=== PATIENT | female | born 1965 | race Caucasian/White ===

== ENCOUNTER 2021-04-24 19:54 | Inpatient (IN) ==
[2021-04-24] MEDS ORDERED: morphine 4 MG/ML VIAL IV ONE (20:13)
[2021-04-24] MEDS ORDERED: NON FORMULARY MEDICATION 1 DOSE MISCELL (Oxycodone 10 mg tablet) PO PRN (20:53)
[2021-04-24] MEDS ORDERED: CYCLOBENZAPRINE (PP) 10 MG TABLET PO PRN (20:53)
[2021-04-24] MEDS ORDERED: DIAZEPAM 10 MG PO SCH (21:00)
--- NOTE | 2021-04-24 21:02 | Internal Med History&Physical ---
HPI History of Present Illness Patient information: Note initiated : 04/24/21 at 8:58 pm Service Date, if different from initiated Date: [] Patient: Maye Duncan a 55 y/o F admitted on for Broken Hip. Chief Complaint: [left hip fracture] History of present illness: Ms. Duncan is a 55 year old F history of seizure and chronic pancreatitis, presenting with seizure with resultant fall and left hip fracture. Last seizure episode was 2 weeks ago, as described as tonic-clonic seizure activities all 4 extremities without LOC. She has been taking Gabapentin 100mg PO TID, last dose was yesterday. Earlier today when she was walking from bedroom to bathroom, she had another episode of tonic clonic seizure activities all 4 extremities, without LOC. She remembers the whole process. No tongue biting. Positive for urinary incontinence. Denies headache. Denies confusion or post-ictal confusion. She is not sure about the duration of the seizure. It was witnessed by her . She fell as a result with resultant left femoral head closed nondisplaced fracture. Currently c/o 6/10 sharp constant pain of left proximal thigh, with radiation up to her left hip and down to her left knee. No witnessed seizure activities since ED presentation. Constitutional Constitutional: Absent chills, excessive sweating, fatigue, fever(s) and weakness EENT Eyes: Absent blurry vision, change in vision, loss of vision and other visual disturbances Ears: Absent decreased hearing and tinnitus Nose, mouth and throat: Absent abnormal hearing, dry mouth, headache(s), nasal congestion and sore throat Cardiovascular Cardiovascular: Absent chest pain, chest pain at rest, edema, irregular heart rhythm and palpatations Respiratory Respiratory: Absent cough, dyspnea and wheezing Gastrointestinal Gastrointestinal: Absent abdominal pain, constipation, diarrhea, nausea and vomiting Musculoskeletal Musculoskeletal: Absent back pain, deformity, limited range of motion, muscle cramps, muscle weakness and numbness Additional comments: left thigh pain Integumentary Integumentary: Absent lesions, rash and wounds Neurological Neurological: Absent focal weakness, headache(s) and numbness Psychiatric Psychiatric: Absent anxiety, depression and hallucinations PFSH PFSH All Active Problems (Updated 04/24/21 @ 21:32 by Srinivasa Hickman MD) Seizure (Acute) Fracture of head of left femur (Acute) Fracture of hip (Acute) MEDS/ALLERGIES Home Medications and Allergies Home Medications Medication Instructions Recorded Confirmed Type buspirone 10 mg PO BID 04/24/21 04/24/21 History cyclobenzaprine 10 mg PO TID PRN 04/24/21 04/24/21 History diazepam 10 mg PO TID PRN 04/24/21 04/24/21 History fentanyl 12 mcg TRANSDERMAL Q72 04/24/21 04/24/21 History food supplemt, lactose-reduced 1 ea PO QDAY 04/24/21 04/24/21 History [Ensure] hydroxyzine HCl 25 mg PO QID PRN 04/24/21 04/24/21 History [id number] [Creon] 2 - 4 cap PO TID 04/24/21 04/24/21 History metoclopramide HCl [Reglan] 10 mg PO BID 04/24/21 04/24/21 History ondansetron 8 mg PO Q8H PRN 04/24/21 04/24/21 History oxycodone-acetaminophen 1 tab PO TID PRN 04/24/21 04/24/21 History pantoprazole 40 mg PO QDAY 04/24/21 04/24/21 History potassium chloride 10 meq PO BID 04/24/21 04/24/21 History trazodone 100 mg PO HS 04/24/21 04/24/21 History vitamin E 400 unit PO QDAY 04/24/21 04/24/21 History Allergies Allergy/AdvReac Type Severity Reaction Status Date / Time citalopram [From Celexa] Allergy Verified 04/24/21 19:59 ketorolac [From Toradol] Allergy Verified 04/24/21 19:59 EXAM Constitutional Vitals: Temp Pulse Resp BP Pulse Ox 36.3 C 77 16 129/75 96 04/24/21 19:55 04/24/21 20:46 04/24/21 19:55 04/24/21 20:46 04/24/21 20:46 General appearance: cooperative and no acute distress Head Head exam: Present atraumatic and normocephalic Eye Eye exam: Present EOMI and PERRL ENT ENT exam: Present mucous membranes moist, normal exam and normal external ear exam Neck Neck exam: Present normal inspection; Absent lymphadenopathy, tenderness and thyromegaly Respiratory Respiratory exam: Absent accessory muscle use, respiratory distress and wheezes Cardiovascular Cardiovascular exam: Present normal rate and rhythm; Absent JVD GI/Abdominal GI/Abdominal exam: Present normal bowel sounds and soft; Absent organomegaly and tenderness Extremities Exam Extremities exam: Present normal capillary refill, normal inspection and tenderness; Absent full ROM Neurological Exam Neurological exam: Present alert, CN II-XII intact and oriented X3; Absent motor sensory deficit Psychiatric Psychiatric exam: Present normal affect and normal mood; Absent anxious and depressed Skin Skin exam: Present dry and intact A/P Assessment and plan (1) Fracture of head of left femur: Status: Acute (2) Seizure: Status: Acute Narrative A/P Narrative: Assessment and Plans: 1. Left femoral head closed nondisplaced fracture: Admit to inpatient PCU Orthopedic surgeon consulted for potential ORIF NPO with NS@100cc/hr for planned surgery Bedrest Oxycodone PRN moderate pain Dilaudid IV PRN severe pain Physical therapy Occupational therapy 2. Seizure: Neuro chek q2hr Seizure precaution Keppra 1000mg PO BID, consult pharmacy for dose titration Ativan IV PRN seizure activities Prolactin level Need outpatient neurology follow up appointment for optimization of anti- epileptic therapy GI ppx: not currently indicated DVT ppx: SCDs Code status: Full Prognosis: Guarded Disposition: inpatient PCU telemetry; PT OT Time Spent With Patient Time: Total time spent is greater than 50% in coordination of care (as documented) at patient's floor/unit and/or counseling patient: Total time spent with greater than 50% in coordination of care (as documented) at patient's floor/unit and/or counseling patient:: Greater than 35 minutes
[2021-04-24] MEDS ORDERED: levETIRAcetam 500 MG TABLET PO ONE (21:08)
[2021-04-24] MEDS ORDERED: levETIRAcetam 1,000 MG in 0.9 % SODIUM CHLORIDE 100 ML IV ONE (21:12)
--- NOTE | 2021-04-24 21:20 | Emergency Department Note ---
HPI General Chief complaint: Extremity Injury, Lower Stated complaint: Broken Hip Time Seen by Provider: 04/24/21 20:13 Source: EMS Mode of arrival: EMS Limitations: no limitations History of Present Illness HPI Narrative: Narrative: Patient is a 55-year-old female who presented with chief complaint of hip fracture. Patient is a transfer from an outside hospital as orthopedic surgery has accepted the patient to be transferred and will be taken to the OR either this evening or tomorrow morning. Patient in brief states that she has a long history of seizures, though she is not on any antiepileptic medications just gabapentin for it. She only has them intermittently and she had one episode today where it caused her to fall onto her left hip. She denies hitting her head or loss of consciousness otherwise, and the work-up at the outside hospital was benign outside of a hip fracture of the left hip. She currently states that she still has some pain but otherwise denies any other significant symptoms such as headache, neck pain, numbness or tingling, chest pain, shortness breath, nausea, vomiting, abdominal pain, changes in bowel movements or urinary symptoms. Related Data Home Medications Medication Instructions Recorded Confirmed cyclobenzaprine 10 mg PO TID PRN 04/24/21 04/24/21 diazepam 10 mg PO TID PRN 04/24/21 04/24/21 fentanyl 12 mcg TRANSDERMAL Q72 04/24/21 04/24/21 [id number] [Creon] 2 - 4 cap PO TID 04/24/21 04/24/21 oxycodone-acetaminophen 1 tab PO TID PRN 04/24/21 04/24/21 Allergies Allergy/AdvReac Type Severity Reaction Status Date / Time citalopram [From Celexa] Allergy Verified 04/24/21 19:59 ketorolac [From Toradol] Allergy Verified 04/24/21 19:59 Review of Systems ROS ROS Narrative: Narrative: All systems ED: reviewed and negative except as stated. [facility] Narr[facility] Patient History Narrative: Narrative: Medical/Surgical/Family History All Active Problems (Updated 04/24/21 @ 21:20 by Ty Anand DO) Fracture of hip (Acute) Social History Smoking Status: Former smoker Exam Narrative Narrative: Narrative: General Limitations: no limitations General appearance: Present alert Head Head: Present atraumatic and normocephalic Eye Eye: Present normal appearance and EOMI Neck Neck: Present full ROM; Absent meningismus Chest Chest: Present symmetric chest wall rise Respiratory Respiratory: Absent respiratory distress, stridor and accessory muscle use Cardiovascular Cardiovascular: Present regular rate and normal rhythm Extremities Extremities: Present normal inspection, full ROM and normal capillary refill; Absent tenderness Expanded Lower Extremity Hip/Pelvis: Present tenderness (Left hip tenderness to palpation) and pelvis stable Neurovascular/Tendon: Present normal capillary refill; Absent pulse deficit, motor deficit and sensory deficit Neurological Neurological: Present alert and oriented X3; Absent motor sensory deficit Psychiatric Psychiatric: Present normal affect and normal mood Skin Skin: Present warm (WNL), dry and normal color; Absent rash Course Vital Signs Vital signs: Vital Signs Temperature 97.4 F 04/24/21 19:55 Pulse Rate 73 04/24/21 19:55 Respiratory Rate 16 04/24/21 19:55 Blood Pressure 136/67 04/24/21 19:55 Pulse Oximetry (%) 96 04/24/21 19:55 Temperature 97.4 F 04/24/21 19:55 Pulse Rate 73 04/24/21 21:01 Respiratory Rate 16 04/24/21 19:55 Blood Pressure 119/66 04/24/21 21:01 Pulse Oximetry (%) 93 04/24/21 21:01 [facility] MDM Narrative Medical decision making narrative: Narrative: Patient is a 55-year-old female presented with chief complaint of hip fracture. At this time patient has no other significant findings on her physical exam, she appears to be neurologically intact, and plan will be to admit her for further work-up and management. Hospitalist is aware, and orthopedics has been notified the patient is arrived. 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
[2021-04-24] MEDS ORDERED: MAGNESIUM SULFATE 2 GM/50 ML BAG IV ONE (22:10)
[2021-04-24] MEDS ORDERED: LIDOCAINE HCL/PF 100 MG/5 ML SYRINGE IV ONE (22:10)
[2021-04-24] MEDS ORDERED: DEXAMETHASONE 10 MG/ML VIAL ONE (22:10)
[2021-04-24] MEDS ORDERED: ONDANSETRON 4 MG/2 ML VIAL ONE (22:10)
[2021-04-24] MEDS ORDERED: PROPOFOL 200 MG/20 ML VIAL IV ONE (22:10)
[2021-04-24] MEDS ORDERED: fentaNYL 100 MCG/2 ML VIAL IV ONE ×2 (22:10→23:08)
[2021-04-24] MEDS ORDERED: NALOXONE HCL 0.4 MG/ML VIAL IV PRN (22:24)
[2021-04-24] MEDS ORDERED: IPRATROPIUM/ALBUTEROL 3 ML AMPUL.NEB NEB PRN ×2 (22:24→23:48)
[2021-04-24] MEDS ORDERED: ACETAMINOPHEN 1,000 MG/100 ML BAG IV ONE (22:24)
[2021-04-24] MEDS ORDERED: LACTATED RINGERS 250 ML IV PRN (22:24)
[2021-04-24] MEDS ORDERED: PROMETHAZINE 25 MG/ML VIAL IV PRN (22:24)
[2021-04-24] MEDS ORDERED: BENZOCAINE/MENTHOL 1 LOZENGE PO PRN (22:24)
[2021-04-24] MEDS ORDERED: diphenhydrAMINE 50 MG/ML VIAL IV PRN (22:24)
[2021-04-24] MEDS ORDERED: ONDANSETRON 4 MG/2 ML VIAL IV PRN ×2 (22:24→23:48)
[2021-04-24] MEDS: ceFAZolin 1 GM VIAL IV SCH ×2 (22:26→22:58)
[2021-04-24] MEDS ORDERED: LACTATED RINGERS 1,000 ML IV SCH (22:30)
[2021-04-24] MEDS ORDERED: BUPIVACAINE W/EPI 0.5% 50 ML VIAL IJ ONE (22:45)
[2021-04-24] MEDS ORDERED: POLYETHYLENE GLYCOL 3350 17 GM PACKET PO PRN (22:52)
[2021-04-24] MEDS ORDERED: MAGNESIUM HYDROXIDE 30 ML ORAL.SUSP PO PRN (22:52)
[2021-04-24] MEDS ORDERED: FLEETS ADULT ENEMA PR PRN (22:52)
[2021-04-24] MEDS ORDERED: HYDROCODONE/APAP 7.5/325MG TABLET PO PRN (22:52)
[2021-04-24] MEDS ORDERED: BISACODYL 10 MG SUPP.RECT PR PRN (22:52)
--- NOTE | 2021-04-24 22:52 | Brief Operative Note ---
Brief Operative Note Date of procedure: 04/24/21 Pre-op diagnosis: Left valgus impacted femoral neck fracture Post-op diagnosis: same Procedure: Percutaneous screw fixation of left femoral neck fracture Grafts/Implants: Yes (Gary 6.5 cannulated screws x 3) Anesthesia: GLMA Findings: nondisplaced valgus impacted femoral neck fracture Complications: none Surgeon: Hosea Jaeger Estimated blood loss (cc): 30 Specimens Removed/Pathology: none sent Condition: stable Disposition: PACU
[2021-04-24] MEDS ORDERED: ceFAZolin 2 GM in DEXTROSE 5% IN WATER 50 ML IV SCH (23:00)
[2021-04-24] MEDS: fentaNYL 100 MCG/2 ML VIAL IV PRN ×4 (23:05→23:19)
[2021-04-24] MEDS: MEPERIDINE 25 MG/ML VIAL IV PRN ×2 (23:11→23:16)
[2021-04-24] MEDS ORDERED: MEPERIDINE 50 MG/ML VIAL ONE (23:14)
[2021-04-24] MEDS: morphine 2 MG/ML VIAL IV PRN ×2 (23:19→23:30)
[2021-04-24] MEDS ORDERED: morphine 2 MG/ML VIAL ONE ×2 (23:21→23:34)
[2021-04-24] MEDS ORDERED: SENNOSIDES 1 TABLET PO PRN (23:48)
[2021-04-24] MEDS ORDERED: ACETAMINOPHEN 325 MG TABLET PO PRN (23:48)
[2021-04-24] MEDS ORDERED: NON FORMULARY MEDICATION 1 DOSE MISCELL (Oxycodone 10 MG) PO PRN (23:48)
[2021-04-24] MEDS ORDERED: 0.9 % SODIUM CHLORIDE 1,000 ML IV SCH (23:48)
[2021-04-24] MEDS ORDERED: LACTULOSE 20 GM/30 ML ORAL.SOL PO PRN (23:48)
[2021-04-24] MEDS ORDERED: HYDROmorphone 0.5 MG/0.5 ML SYRINGE IV PRN (23:48)
[2021-04-24] MEDS ORDERED: LORazepam 2 MG/ML VIAL IV PRN (23:48)
[2021-04-24] MEDS: DOCUSATE SODIUM 100 MG CAPSULE PO SCH (23:50)
[2021-04-25] MEDS: 0.9 % SODIUM CHLORIDE 1,000 ML IV SCH ×2 (00:22→11:52)
[2021-04-25] MEDS: 0.9 % SODIUM CHLORIDE 10 ML SYRINGE IV SCH ×2 (00:29→05:52)
[2021-04-25] MEDS: levETIRAcetam 500 MG TABLET PO SCH ×2 (00:29→09:01)
[2021-04-25] MEDS ORDERED: DIAZEPAM 5 MG TABLET ONE (00:41)
[2021-04-25 01:11] LABS: Prolactin 31.7 ng/mL (4.8-23.3)
[2021-04-25] MEDS: morphine 4 MG/ML VIAL IV PRN ×2 (02:30→06:50)
[2021-04-25] MEDS ORDERED: morphine 4 MG/ML VIAL ONE (02:32)
--- NOTE | 2021-04-25 05:51 | XRay Report ---
INDICATION: left hip pinning TECHNIQUE: Intraoperative fluoroscopy and spot films utilized. 2.6 minutes fluoroscopy and 3.97 mGy exposure used. Left subcapital hip fracture was. Subcapital hip transfixion with cannulated screws performed. IMPRESSION: Intraoperative fluoroscopy and spot films Interpreted and Authenticated by: Deepak Duncan 04/25/21
[2021-04-25] MEDS ORDERED: CYCLOBENZAPRINE 10 MG TABLET PO PRN (06:06)
[2021-04-25 06:54] LABS: Basophils # (Auto) 0.02 K/mcL (0.00-0.30); Basophils % (Auto) 0.2 % (0.0-2.0); Eosinophils # (Auto) 0 K/mcL (0.00-0.70); Eosinophils % (Auto) 0 % (0.0-7.0); Hematocrit 32.8 % (34.1-44.9); Lymphocytes # (Auto) 0.53 K/mcL (1.50-4.80); Lymphocytes % (Auto) 5.4 % (15.5-49.0); Mean Cell Volume 95.6 fL (80.0-100.0); Mean Corpuscular HGB Conc 33.5 g/dL (31.0-36.0); Mean Platelet Volume 10.8 fL (7.4-10.4); Monocytes # (Auto) 0.11 K/mcL (0.10-0.90); Monocytes % (Auto) 1.1 % (1.0-12.0); Neutrophils % (Auto) 93.3 % (38.0-78.0); Platelet Count 227 K/mcL (140-440); RBC 3.43 M/mcL (3.59-5.38); Red Cell Distribution Width 13.2 % (11.5-14.5); WBC 9.7 K/mcL (4.5-11.0)
[2021-04-25] MEDS ORDERED: ceFAZolin 1 GM VIAL IV SCH (07:00)
[2021-04-25 07:17] LABS: ALT/SGPT 19 U/L (<40); AST/SGOT 26 U/L (<32); Albumin 3.9 gm/dL (3.2-5.2); Albumin/Globulin Ratio 1.6 (1.0-2.3); Alkaline Phosphatase 80 U/L (39-117); Bilirubin,Total 0.3 mg/dL (0.1-1.0); Blood Urea Nitrogen 8 mg/dL (6-20); Calcium 8.1 mg/dL (8.6-10.4); Carbon Dioxide 22 mmol/L (22-30); Chloride 107 mmol/L (96-108); Globulin 2.5 gm/dL (2.2-3.7); Glomerular Filtration Rate 108; Glucose 142 mg/dL (70-105)
--- NOTE | 2021-04-25 07:43 | EKG ---
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
[2021-04-25] MEDS: DOCUSATE SODIUM 100 MG CAPSULE PO SCH (08:32)
[2021-04-25] MEDS ORDERED: DIAZEPAM 10 MG TABLET PO SCH (09:00)
[2021-04-25] MEDS ORDERED: ASPIRIN 325 MG ENTERIC COATED TABLET PO SCH (09:00)
[2021-04-25] MEDS ORDERED: DOCUSATE SODIUM 100 MG CAPSULE PO SCH (09:00)
--- NOTE | 2021-04-25 09:35 | Orthopedic Progress Note ---
SUBJECTIVE Subjective Patient information: Note initiated : 04/25/21 at 9:31 am Service Date, if different from initiated Date: [] Patient: Maye Duncan 55 y/o F admitted on 04/24/21 for Broken Hip. Chief Complaint: [] Principal diagnosis: femoral neck fracture Interval history: pain well controlled Constitutional Vitals: Vital Signs Temp Pulse Resp BP Pulse Ox 98.3 F 79 20 130/84 95 04/25/21 08:10 04/25/21 08:10 04/25/21 08:10 04/25/21 08:10 04/25/21 08:10 Period Temp Pulse Resp BP Sys/Lainez Pulse Ox Last 24 Hr 97.1 F-98.9 F 60-117 10-20 101-144/49-98 92-100 Intake and Output 04/24/21 04/25/21 04/25/21 21:59 05:59 13:59 Intake Total 1257 659 Output Total 1550 Balance -293 659 Weight 105 lb 108 lb 1.6 oz Intake & Output: Intake & Output 04/24/21 04/25/21 04/25/21 21:59 05:59 13:59 Intake Total 1257 659 Output Total 1550 Balance -293 659 Weight 105 lb 108 lb 1.6 oz Intake: IV 137 659 Sodium Chloride 0.9% 1,000 ml @ 659 75 mls/hr IV .[id number] [facility] Rx#: [id number] Lactated Ringers 1,000 ml @ 20 37 mls/hr IV .Q24H [facility]IRG[facility] Rx#: [id number] Oral 120 IV - Manual Only 1000 Output: Urine Catheter Amount 1500 Estimated Blood Loss 50 Other: Urine Appearance Clear Uretheral (Oden) Clear Clear Clear Urine Color Bright Yellow Uretheral (Oden) Dark Yellow Pale Bright Yellow Urine Odor Normal General appearance: no acute distress OBJ DATA Labs CBC & Chem 7: 04/25/21 05:53 04/25/21 05:53 Labs: Abnormal Lab Results 04/25/21 04/25/21 04/24/21 05:53 05:53 00:16 RBC 3.43 L Hgb 11.0 L Hct 32.8 L MPV 10.8 H Neut % (Auto) 93.3 H Lymph % (Auto) 5.4 L Lymph # (Auto) 0.53 L Absolute Neutrophils 9.07 H Creatinine 0.5 L Glucose 142 H Calcium 8.1 L Prolactin 31.7 H Meds: Medications Acetaminophen (Acetaminophen 325 Mg Tablet) 650 mg PO Q6HP PRN; Protocol PRN Reason: Per Pain Protocol/Fever > 101 Hydrocodone Bitart/Acetaminophen (Hydrocodone/Apap 7.5/325mg Tablet) 0 tab PO Q4HP PRN; Protocol PRN Reason: Per Pain Protocol Albuterol/Ipratropium (Ipratropium/Albuterol 3 Ml Ampul.Neb) 3 ml NEB Q4HRT PRN PRN Reason: Wheezing Aspirin (Aspirin 325 Mg Enteric Coated Tablet) 325 mg PO BID [facility] Last Admin: 04/25/21 09:01 Dose: 325 mg Documented by: Bisacodyl (Bisacodyl 10 Mg Supp.Rect) 10 mg IA Q2-3DAYS PRN PRN Reason: Constipation Cefazolin Sodium (Cefazolin 1 Gm Vial) 2 gm IV Q8H [facility] Stop: 04/25/21 15:01 Last Admin: 04/25/21 06:50 Dose: 2 gm Documented by: Cyclobenzaprine HCl (Cyclobenzaprine 10 Mg Tablet) 10 mg PO TIDP PRN PRN Reason: Spasms Diazepam (Diazepam 10 Mg Tablet) 10 mg PO BID [facility] Last Admin: 04/25/21 09:01 Dose: 10 mg Documented by: Docusate Sodium (Docusate Sodium 100 Mg Capsule) 100 mg PO BID [facility] Last Admin: 04/25/21 08:32 Dose: Not Given Documented by: Hydromorphone HCl (Hydromorphone 0.5 Mg/0.5 Ml Syringe) 0.5 mg IV Q4HP PRN; Protocol PRN Reason: Per Pain Protocol Sodium Chloride (Sodium Chloride 0.9%) 1,000 mls @ 75 mls/hr IV .[id number] [facility] Last Infusion: 04/25/21 09:10 Dose: Infused Documented by: Lactulose (Lactulose 20 Gm/30 Ml Oral.Leisa) 10 gm PO DAILYP PRN PRN Reason: Constipation Levetiracetam (Levetiracetam 500 Mg Tablet) 1,000 mg PO BID [facility] Last Admin: 04/25/21 09:01 Dose: 1,000 mg Documented by: Lorazepam (Lorazepam 2 Mg/Ml Vial) 2 mg IV Q1HP PRN PRN Reason: Seizure Activity Magnesium Hydroxide (Magnesium Hydroxide 30 Ml Oral.Susp) 30 ml PO BIDP PRN PRN Reason: Constipation Morphine Sulfate (Morphine 4 Mg/Ml Vial) 0 mg IV Q1HP PRN; Protocol PRN Reason: Per Pain Protocol Last Admin: 04/25/21 06:50 Dose: 4 mg Documented by: Non-Formulary Medication (Oxycodone) 10 mg PO Q4H PRN PRN Reason: Pain Ondansetron HCl (Ondansetron 4 Mg/2 Ml Vial) 4 mg IV Q4HP PRN; Protocol PRN Reason: Nausea And Vomiting Polyethylene Glycol (Polyethylene Glycol 3350 17 Gm Packet) 17 gm PO DAILYP PRN PRN Reason: Constipation Senna (Sennosides 1 Tablet) 2 tab PO HSP PRN PRN Reason: Constipation Sodium Biphosphate/Sodium Phosphate (Fleets Adult Enema) 1 dose IA Q3-4DAYS PRN PRN Reason: Constipation Sodium Chloride (0.9 % Sodium Chloride 10 Ml Syringe) 10 ml IV Q8 [facility] Last Admin: 04/25/21 05:52 Dose: Not Given Documented by: A/P Assessment and plan (1) Fracture of head of left femur: Status: Acute Narrative A/P Narrative: POD#1 s/p Left hip perc pinning for femoral neck fracture-ortho stable -d/c home today if ok w hospitalist -toe touch weight bearing LLE, place silver dressing on and leave 7 days -could see PCP for joyce out 10-14 days and xray check, f/u w me in 6 weeks -outpt PT Time Spent With Patient Time: Total time spent is greater than 50% in coordination of care (as documented) at patient's floor/unit and/or counseling patient:
--- NOTE | 2021-04-25 09:38 | Discharge Summary ---
Discharge Provider Provider Patient information: Note initiated : 04/25/21 at 9:34 am Service Date, if different from initiated Date: [] Patient: Maye Duncan 55 y/o F admitted on 04/24/21 for Broken Hip. Chief Complaint: [] Date of admission: 04/24/21 23:43 Discharge date: 04/25/21 Primary care physician: Wayne Ramirez MD Attending physician on admission: Srinivasa Hickman Consults: 04/24/21 Consult to Physician [CONS] Stat Comment: Consulting Provider: Hosea Jaeger Reason For Exam: Physician to Consult Consult to Physician [CONS] Stat Comment: Consulting Provider: Srinivasa Hickman Reason For Exam: Physician to Consult Attending physician on discharge: Srinivasa Hickman Discharge Meds Discharge Medications Home Medications buspirone 10 mg tablet 10 mg PO BID 04/24/21 [History Confirmed 04/24/21 Last Taken Unknown] cyclobenzaprine 10 mg tablet 10 mg PO TID PRN 04/24/21 [History Confirmed 04/24/21 Last Taken Unknown] diazepam 10 mg tablet 10 mg PO TID PRN 04/24/21 [History Confirmed 04/24/21 Last Taken Unknown] fentanyl 12 mcg/hr transdermal patch 12 mcg TRANSDERMAL Q72 04/24/21 [History Confirmed 04/24/21 Last Taken 04/22/21] food supplemt, lactose-reduced (Ensure) 1 ea PO QDAY 04/24/21 [History Confirmed 04/24/21 Last Taken Unknown] hydroxyzine HCl 25 mg tablet 25 mg PO QID PRN 04/24/21 [History Confirmed 04/24/21 Last Taken Unknown] bcwqxy-[id number]-nlmhwyj 24,000-76,000-120,000 unit capsule,delayed rel (Creon) 2 - 4 cap PO TID 04/24/21 [History Confirmed 04/24/21 Last Taken Unknown] metoclopramide HCl 10 mg tablet (Reglan) 10 mg PO BID 04/24/21 [History Confirmed 04/24/21 Last Taken Unknown] ondansetron 8 mg disintegrating tablet 8 mg PO Q8H PRN 04/24/21 [History Confirmed 04/24/21 Last Taken Unknown] oxycodone-acetaminophen 5 mg-325 mg tablet 1 tab PO TID PRN 04/24/21 [History Confirmed 04/24/21 Last Taken Unknown] pantoprazole 40 mg tablet,delayed release 40 mg PO QDAY 04/24/21 [History Confirmed 04/24/21 Last Taken Unknown] potassium chloride 10 mEq capsule,extended release 10 meq PO BID 04/24/21 [History Confirmed 04/24/21 Last Taken Unknown] trazodone 100 mg tablet 100 mg PO HS 04/24/21 [History Confirmed 04/24/21 Last Taken Unknown] vitamin E 400 unit capsule 400 unit PO QDAY 04/24/21 [History Confirmed 04/24/21 Last Taken Unknown] aspirin 325 mg tablet,delayed release 325 mg PO BID 60 Days #120 tab 04/25/21 [Rx Last Taken Unknown] hydrocodone 7.5 mg-acetaminophen 325 mg tablet 1 - 2 tab PO Q4H PRN #50 tab 04/25/21 [Rx Last Taken Unknown] levetiracetam 500 mg tablet 1,000 mg PO BID 30 Days #120 tab 04/25/21 [Rx Last Taken Unknown] COURSE Hospital Course Hospital course: She was admitted on April 24, 2021 for left femoral neck hip fractures secondary to fall secondary to seizures. Patient was started on Keppra orally for seizure prophylaxis and Ativan provided for any seizure activities. There was no more additional seizure activities during her hospital state. Orthopedic surgeons was consulted who performed percutaneous screw fixation of the left femoral neck fracture. Patient tolerated the procedures well. Physical therapist evaluated the patient and agreed that patient could be discharged home when medically stable. Patient reached such medical stability on day 2 hospitalization and decision was made to discharge patient home with 2 weeks PCP follow-up in 6 weeks orthopedic surgery follow-up. Prescriptions given to the patient. All questions were answered prior to patient being physically discharged. Discharge diagnosis: left femoral neck hip fracture Reason for admission: left femoral neck hip fracture Time Spent with Patient Time attestation: Total time spent providing and/or coordinating discharge services: EXAM Constitutional Vitals: Temp Pulse Resp BP Pulse Ox 36.8 C 79 20 130/84 95 04/25/21 08:10 04/25/21 08:10 04/25/21 08:10 04/25/21 08:10 04/25/21 08:10 General appearance: cooperative and no acute distress Head Head exam: Present atraumatic and normocephalic Eye Eye exam: Present EOMI and PERRL ENT ENT exam: Present mucous membranes moist, normal exam and normal external ear exam Neck Neck exam: Present normal inspection; Absent lymphadenopathy, tenderness or thyromegaly Respiratory Respiratory exam: Absent accessory muscle use, respiratory distress or wheezes Cardiovascular Cardiovascular exam: Present normal rate and rhythm; Absent JVD GI/Abdominal GI/Abdominal exam: Present normal bowel sounds and soft; Absent organomegaly or tenderness Extremities Exam Extremities exam: Present full ROM, normal capillary refill and tenderness; Absent normal inspection Neurological Exam Neurological exam: Present alert, CN II-XII intact and oriented X3; Absent motor sensory deficit Psychiatric Psychiatric exam: Present normal affect and normal mood; Absent anxious or depressed Skin Skin exam: Present dry and intact Discharge Data Data Completed and Pending Labs on day of discharge: Labs from last 24 hours 04/25/21 04/25/21 04/24/21 05:53 05:53 00:16 WBC 9.7 RBC 3.43 L Hgb 11.0 L Hct 32.8 L MCV 95.6 MCH 32.1 MCHC 33.5 RDW 13.2 Plt Count 227 MPV 10.8 H Neut % (Auto) 93.3 H Lymph % (Auto) 5.4 L [place] % (Auto) 1.1 Eos % (Auto) 0 Baso % (Auto) 0.2 Lymph # (Auto) 0.53 L [place] # (Auto) 0.11 Eos # (Auto) 0 Baso # (Auto) 0.02 Absolute Neutrophils 9.07 H Sodium 141 Potassium 3.5 Chloride 107 Carbon Dioxide 22 Anion Gap 12.0 BUN 8 Creatinine 0.5 L GFR Calculation 108 Glucose 142 H Calcium 8.1 L Total Bilirubin 0.3 AST 26 ALT 19 Alkaline Phosphatase 80 Total Protein 6.4 Albumin 3.9 Globulin 2.5 Albumin/Globulin Ratio 1.6 Prolactin 31.7 H Discharge Plan Patient/Caregiver Discharge Instructions Activity: as instructed Diet: Regular Diet Instructions: Hip Fracture (ED) Activity Restrictions/Additional Instructions: Activity Restrictions/Additional Instructions: Toe touch weight bearing left lower extremity Total Hip Protocol: Follow activity instructions as provided by Physical Therapy. Dressing Care: Other Additional Dressing Instructions: Place a silver dressing prior to d/c, leave on 7 days, then dry dresssing change daily until joyce out Diet: Regular Diet Prescriptions: New aspirin 325 mg Tablet,Delayed Release (Dr/Ec) 325 mg PO BID 60 Days Qty: 120 0RF hydrocodone-acetaminophen 7.5-325 mg Tablet 1 - 2 tab PO Q4H PRN (Reason: Pain) Qty: 50 0RF levetiracetam 500 mg Tablet 1,000 mg PO BID 30 Days Qty: 120 0RF Continued cyclobenzaprine 10 mg tablet 10 mg PO TID PRN (Reason: Spasms) 0RF oxycodone-acetaminophen 5-325 mg tablet 1 tab PO TID PRN (Reason: Pain) 0RF diazepam 10 mg Tablet 10 mg PO TID PRN (Reason: Anxiety) 0RF Rx Instructions: take 1/2 to 1 tablet by mouth TID PRN anxiety fentanyl 12 mcg/hr patch 72 hour 12 mcg transdermal Q72 0RF Creon 24,000-76,000 -120,000 unit capsule,delayed release(DR/EC) 2 - 4 cap PO TID 0RF potassium chloride 10 mEq capsule, extended release 10 meq PO BID 0RF ondansetron 8 mg Tablet,Disintegrating 8 mg PO Q8H PRN (Reason: Nausea) 0RF trazodone 100 mg tablet 100 mg PO HS 0RF pantoprazole 40 mg tablet,delayed release (DR/EC) 40 mg PO QDAY 0RF buspirone 10 mg tablet 10 mg PO BID 0RF hydroxyzine HCl 25 mg Tablet 25 mg PO QID PRN (Reason: Anxiety) 0RF vitamin E 400 unit Capsule 400 unit PO QDAY 0RF metoclopramide HCl [Reglan] 10 mg Tablet 10 mg PO BID 0RF Ensure Liquid 1 ea PO QDAY 0RF Other Ambulatory Orders: Physical Therapy DC - ASMITA (Routine) Location: None Selected Ordered By: Hosea Jaeger Toilet Riser Discharge Order (ONCE) Location: None Selected Ordered By: Hosea Jaeger Walker (ONCE) Location: None Selected Ordered By: Hosea Jaeger Follow Up Plan Follow up with: Hosea Jaeger MD [Physician] - (Dr. Jaeger's office will contact you to schedule a follow up appointment.) Wayne Ramirez MD [Primary Care Provider] - Patient Disposition: Home, Self-Care Rehab Potential: Good I certify that the patient requires SNF services: No Overall status at discharge: patient is progressing back to baseline Discharge Orders: Discharge Order (Routine); Ordered 04/25/21 Ordered By: Hosea Jaeger QUALITY VTE Deep Vein Thrombosis/Pulmonary Embolism Present on Admission: No
[2021-04-25] MEDS ORDERED: FLU VACC QS2021-22(6MOS UP)/PF 60 MCG/0.5 ML SYRINGE IM ONE (10:00)
[2021-04-25] MEDS ORDERED: SENNOSIDES 1 TABLET PO SCH (21:00)
--- NOTE | 2021-05-27 08:11 | Operative Note ---
DATE OF OPERATION: 04/24/2021 PREOPERATIVE DIAGNOSIS: Left valgus impacted femoral neck fracture. POSTOPERATIVE DIAGNOSIS: Left valgus impacted femoral neck fracture. PROCEDURE PERFORMED: Left percutaneous screw fixation of a nondisplaced valgus impacted femoral neck fracture using three [place] 6.5 cannulated screws. SURGEON: Hosea Jaeger M.D. LABEL PRINTING MACHINIST: None. ANESTHESIA: General. DRAINS: None. SPECIMENS: None. COMPLICATIONS: None. ESTIMATED BLOOD LOSS: 30 mL. POSTOPERATIVE CONDITION: Stable. INDICATIONS FOR SURGERY: This is a 55-year-old female who had a seizure and fall, injuring her left hip. She is having pain and difficulty bearing weight. X-rays were taken, which showed a valgus impacted femoral neck fracture. FINDINGS AT SURGERY: Valgus impacted femoral neck fracture. Post-procedure showed satisfactory fracture alignment and hardware placement. PROCEDURE IN DETAIL: The patient had been seen preoperatively and informed consent had been obtained after discussion of risks and benefits of surgery. Risks including, but not limited to, bleeding; infection; injury to nerves, blood vessels, other surrounding structures, anesthetic risks; nonunion or malunion of the fracture; failure of hardware fixation; possibility of developing avascular necrosis or other complications that might require further surgery such as total hip arthroplasty. She understood and wished to proceed. Correct operative site was marked and the patient was taken to the operating room. General anesthesia induced. She was carefully transferred onto the fracture table and then gentle traction was placed on the leg with some internal rotation. Fluoroscopy was brought in. We did minor adjustments on the traction and foot positioned and the left hip and thigh were then carefully prepped and draped in the normal sterile fashion. A timeout was performed verifying patient name, operative site, and plan. Using fluoroscopic guidance, I then made a small stab incision laterally, a knife through skin and then we continued with a scalpel through the IT band and then we spread with a tonsil clamp. Tendon was then placed on the lateral femur. Careful attention was made to make sure our starting point was not below the lesser trochanter. We started the guide pin and placed it up along the inferior half femoral neck. Part way up we then checked the lateral x-ray to identify our trajectory and then adjusted to make it central. We passed this up until it was just below the articular surface. We then used the inverted triangle guide to place our two remaining screws, 1 proximal posterior and 1 proximal anterior. Once we liked all three pin positions on both AP and lateral views, we then used a ruler to identify screw length. We drilled the near cortex and then three partially threaded 6.5 cannulated screws were passed over the wires. Once these were placed, we backed the pins out at three different lengths and then checked AP and lateral x-rays. We liked our final hardware position and fracture alignment. Images were saved. We then removed the guide pins completely and irrigated copiously with saline. Monocryl was used for subcutaneous closure and joyce for skin. Local anesthetic was injected. Xeroform and sterile dressing were applied. The patient was then awakened, extubated, and transferred to recovery in satisfactory condition. [id number] Job ID: [id number] Doc ID: [id number] Hosea Jaeger MD
== END 2021-04-25 13:00 | disposition home or self-care (01) ==
LOC: ED 19:54 → SUR 21:45 → ICU 23:43
PROVIDERS: ADMIT Internal Medicine; ATTEND Internal Medicine